=== PATIENT | female | born 1975 | race Caucasian/White ===

== ENCOUNTER 2021-08-20 07:43 | Day surgery (SDC) | payer SELFPAY ==
[2021-08-18 13:32] VITALS: BMI 25.7
[2021-08-20] MEDS ORDERED: HYDROmorphone HCL/PF 1 MG/ML VIAL ONE (08:55)
[2021-08-20] MEDS ORDERED: MIDAZOLAM HCL 2 MG/2 ML SINGLE DOSE VIAL ONE ×2 (08:55)
[2021-08-20] MEDS ORDERED: fentaNYL CITRATE 250 MCG/5 ML VIAL ONE (08:55)
[2021-08-20] MEDS ORDERED: ROCURONIUM BROMIDE 50 MG/5 ML SYRINGE ONE ×2 (08:55→11:14)
[2021-08-20] MEDS ORDERED: SODIUM CHLORIDE 0.9% P/F 10 ML VIAL IJ ONE (09:01)
[2021-08-20] MEDS ORDERED: EPINEPHrine/PF 1 MG/1 ML (1:1,000) AMPULE ONE (09:49)
[2021-08-20] MEDS ORDERED: LIDOCAINE HCL 1%, 10 MG/ML (20ML VIAL) ONE ×2 (09:50→10:35)
[2021-08-20] MEDS ORDERED: BUPIVACAINE HCL/PF 2.5 MG/ML - 30 ML VIAL IJ ONE (09:50)
[2021-08-20] MEDS ORDERED: GUM MASTIC/STORAX/MSAL/ALCOHOL 1 DRP DROPSBTL MC ONE (09:50)
[2021-08-20] MEDS ORDERED: ZOLPIDEM TARTRATE 5 MG TABLET PO PRN (10:10)
[2021-08-20] MEDS ORDERED: ONDANSETRON 4 MG/2 ML VIAL IVPUSH PRN ×2 (10:10→16:10)
[2021-08-20] MEDS ORDERED: DOCUSATE SODIUM 100 MG CAPSULE (FP) PO PRN (10:12)
[2021-08-20] MEDS ORDERED: HYDROmorphone HCl 2 MG/ML VIAL IVPB PRN (10:13)
[2021-08-20] MEDS ORDERED: ePHEDrine SULFATE 50 MG/1 ML AMPULE ONE (10:34)
[2021-08-20] MEDS ORDERED: ceFAZolin SODIUM 1 GM VIAL ONE ×3 (11:14→19:51)
[2021-08-20] MEDS ORDERED: PHENYLEPHRINE HCL 10 MG/1 ML SINGLE DOSE VIAL ONE (11:14)
[2021-08-20] MEDS ORDERED: DEXAMETHASONE SOD PHOSPHATE 4 MG/1 ML VIAL ONE (11:14)
[2021-08-20] MEDS ORDERED: NEOSTIGMINE METHYLSULFATE 0.5 MG/1 ML - 10 ML MDV ONE (13:05)
[2021-08-20] MEDS ORDERED: BUPIVACAINE HCL/PF 0.25% (2.5MG/ML) 10 ML VIAL ONE (14:25)
[2021-08-20] MEDS ORDERED: PROPOFOL 20 ML ONE (15:20)
[2021-08-20] MEDS ORDERED: BUPIVACAINE HCL/PF 0.25% (2.5MG/ML) 10 ML VIAL IJ ONE (15:22)
[2021-08-20] MEDS ORDERED: CEFAZOLIN 1 GM in DEXTROSE 5%-WATER - 50 ML IVPB SCH (16:00)
[2021-08-20] MEDS: LACTATED RINGERS SOLUTION 1,000 ML IV SCH ×2 (18:16)
[2021-08-20] MEDS: DOXYCYCLINE HYCLATE 100 MG CAPSULE PO SCH (18:21)
[2021-08-20] MEDS ORDERED: DEXTROSE 5%-WATER - 50 ML IVPB ONE (19:51)
[2021-08-20] MEDS: CEFAZOLIN 1 GM in DEXTROSE 5%-WATER - 50 ML IVPB SCH (19:56)
[2021-08-20] MEDS ORDERED: ENOXAPARIN NA (PORCINE) 40 MG/0.4 ML DISP.SYRIN SQ ONE (21:00)
[2021-08-21] MEDS ORDERED: ceFAZolin SODIUM 1 GM VIAL ONE ×3 (00:12→13:52)
[2021-08-21] MEDS ORDERED: DEXTROSE 5%-WATER - 50 ML IVPB ONE ×3 (00:13→13:52)
[2021-08-21] MEDS: CEFAZOLIN 1 GM in DEXTROSE 5%-WATER - 50 ML IVPB SCH ×3 (01:11→13:56)
[2021-08-21] MEDS: DOXYCYCLINE HYCLATE 100 MG CAPSULE PO SCH ×2 (10:35→18:49)
[2021-08-21] MEDS: LACTATED RINGERS SOLUTION 1,000 ML IV SCH ×2 (10:39→16:52)
[2021-08-21] MEDS ORDERED: ENOXAPARIN NA (PORCINE) 40 MG/0.4 ML DISP.SYRIN SQ ONE (13:15)
[2021-08-21] MEDS: oxyCODONE HCL 5 MG TABLET PO PRN ×3 (14:12→21:45)
[2021-08-21] MEDS: ACETAMINOPHEN 325 MG TABLET (FP) PO PRN (21:45)
[2021-08-22] MEDS: oxyCODONE HCL 5 MG TABLET PO PRN ×2 (06:33→14:18)
[2021-08-22] MEDS: ACETAMINOPHEN 325 MG TABLET (FP) PO PRN (06:34)
[2021-08-22] MEDS ORDERED: oxyCODONE HCL 5 MG TABLET PO PRN ×2 (07:43→08:23)
[2021-08-22] MEDS ORDERED: ceFAZolin SODIUM 1 GM VIAL ONE ×2 (08:53→14:12)
[2021-08-22] MEDS ORDERED: DEXTROSE 5%-WATER - 50 ML IVPB ONE ×2 (08:54→14:13)
[2021-08-22] MEDS: CEFAZOLIN 1 GM in DEXTROSE 5%-WATER - 50 ML IVPB SCH ×2 (08:56→14:19)
[2021-08-22] MEDS: DOXYCYCLINE HYCLATE 100 MG CAPSULE PO SCH (11:00)
[2021-08-22] MEDS ORDERED: ENOXAPARIN NA (PORCINE) 40 MG/0.4 ML DISP.SYRIN SQ ONE (14:00)
[2021-08-22 14:13] VITALS: BP 103/61; PULSE 82; TEMP 98.7
[2021-08-22] MEDS: LACTATED RINGERS SOLUTION 1,000 ML IV SCH (18:58)
== END 2021-08-22 19:35 | disposition home or self-care (01) ==
LOC: FASUSAT 07:43 → FASU 07:43 → FM/S 10:10 → FASUSAT 08-22 19:35
PROVIDERS: ATTEND Surgery
CPT/HCPCS: 81025; 94760